=== PATIENT | male | born 1945 | race Caucasian/White ===

== ENCOUNTER 2021-01-10 07:36 | Outpatient (CLI) | payer OTHER | END 2021-01-10 07:41 | disposition home or self-care (01) | LOC: EDBD 07:36 → LAB 07:36 | PROVIDERS: ATTEND Orthopaedic Surgery | DX: M81.8 Other osteoporosis without current pathological fracture (principal); M85.9 Disorder of bone density and structure, unspecified; E88.89 Other specified metabolic disorders; E83.42 Hypomagnesemia; E56.1 Deficiency of vitamin K ==